=== PATIENT | male | born 1980 | race Two or more races ===

== ENCOUNTER 2017-02-25 07:19 | Observation (INO) | payer OTHER ==
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
[2017-02-25] MEDS ORDERED: morphine CARPU-JECT 4 MG/1 ML DISP.SYRIN IVPUSH ONE ×2 (08:04→10:46)
[2017-02-25] MEDS ORDERED: ONDANSETRON 4 MG/2 ML VIAL IVPUSH ONE ×2 (08:05→10:46)
[2017-02-25] MEDS ORDERED: morphine CARPU-JECT 4 MG/1 ML DISP.SYRIN ONE ×2 (08:16→10:54)
[2017-02-25] MEDS ORDERED: ONDANSETRON 4 MG/2 ML VIAL ONE ×2 (08:17→10:54)
[2017-02-25 08:39] LABS: BASOPHIL 0.4 % (0-2.0); EOSINOPHIL 2.4 % (0-4.5); MCH 30.4 pg (25.7-33.7); MCHC 33.9 g/dl (32.0-35.9); MEAN CELL VOLUME 89.9 fl (80-96); MEAN PLT VOLUME 8.7 fl (7.5-11.1); NEUTROPHILS 74.1 % (42.8-82.8); PLATELET COUNT 256 K/MM3 (134-434); RDW 13.2 % (11.9-15.9); WHITE BLOOD COUNT 9.2 K/mm3 (4.0-10.0)
[2017-02-25 11:05] LABS: ARTERIAL BLD GAS O2 SATURATION 94.6 % (90-98.9); ARTERIAL BLOOD GAS BASE EXCESS 3.9 meq/l (-2-2); ARTERIAL BLOOD GAS HCO3 28.8 meq/L (22-26); ARTERIAL BLOOD GAS pH 7.41 (7.35-7.45)
[2017-02-25 11:06] LABS: ALLENS TEST POSITIVE; ART PUNCT SITE RIGHT RADIAL; PT. ON O2? NO
[2017-02-25 11:07] LABS: ARTERIAL BLOOD GAS PO2 70.9 mmHg (80-100); LPM/O2% 21%
[2017-02-25 11:08] LABS: METHEMOGLOBIN 0.6 % (0.4-1.5)
[2017-02-25 11:51] LABS: ALBUMIN 3.5 g/dl (3.4-5.0); ALK PHOS 77 U/L (45-117); ANION GAP 7 (8-16); BILIRUBIN,TOTAL 0.7 mg/dL (0.2-1.0); CALCIUM 9.1 mg/dL (8.5-10.1); CO2 31 mmol/L (21-32); GLUCOSE,RANDOM 115 mg/dL (74-106); SGOT/AST 28 U/L (15-37); SGPT/ALT 42 U/L (12-78)
[2017-02-25 13:34] VITALS: BMI 29.2
[2017-02-25 14:03] LABS: URINE APPEARANCE CLEAR; URINE BILIRUBIN NEGATIVE (NEGATIVE); URINE BLOOD 1+ (NEGATIVE); URINE COLOR YELLOW; URINE GLUCOSE (UA) NEGATIVE (NEGATIVE); URINE KETONE NEGATIVE (NEGATIVE); URINE LEUK ESTERASE NEGATIVE (NEGATIVE); URINE NITRITE NEGATIVE (NEGATIVE); URINE PROTEIN NEGATIVE (NEGATIVE); URINE UROBILINOGEN NEGATIVE mg/dL (0.2-1.0)
[2017-02-25 14:07] LABS: URINE MUCUS RARE; URINE RBC 2 /hpf (0-3); URINE WBC 2 /hpf (3-5)
[2017-02-25] MEDS: oxyCODONE HCL 5 MG TABLET PO PRN ×2 (15:12→19:52)
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
[2017-02-26] MEDS: oxyCODONE HCL 5 MG TABLET PO PRN ×3 (06:14→14:55)
[2017-02-26] MEDS: ACETAMINOPHEN 325 MG TABLET (FP) PO PRN ×3 (06:15→14:54)
[2017-02-26 08:52] LABS: BASOPHIL 0.5 % (0-2.0); EOSINOPHIL 2.8 % (0-4.5); MCH 30.4 pg (25.7-33.7); MCHC 33.5 g/dl (32.0-35.9); MEAN CELL VOLUME 90.5 fl (80-96); MEAN PLT VOLUME 8.6 fl (7.5-11.1); NEUTROPHILS 69.9 % (42.8-82.8); PLATELET COUNT 233 K/MM3 (134-434); RDW 12.9 % (11.9-15.9); WHITE BLOOD COUNT 10.2 K/mm3 (4.0-10.0)
[2017-02-26 09:33] LABS: ANION GAP 11 (8-16); BILIRUBIN,TOTAL 0.8 mg/dL (0.2-1.0); CO2 29 mmol/L (21-32); CREATININE 0.9 mg/dL (0.7-1.3); GLUCOSE,RANDOM 88 mg/dL (74-106); SGOT/AST 20 U/L (15-37); SGPT/ALT 34 U/L (12-78); TOT PROT 6.4 g/dl (6.4-8.2)
[2017-02-26 09:36] LABS: ALK PHOS 75 U/L (45-117); CALCIUM 8.7 mg/dL (8.5-10.1)
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
[2017-02-26 14:36] VITALS: BP 134/71; PULSE 58; TEMP 97.7
== END 2017-02-26 16:04 | disposition home or self-care (01) ==
LOC: JER 07:19 → JERBED 11:18 → J6S 12:15
PROVIDERS: ADMIT Internal Medicine; ATTEND Internal Medicine
CPT/HCPCS: 36415; 36600; 70450-TC; 71010-TC; 71250-TC; 72050-TC; 80053; 81003; 81015; 82375; 82803; 83050; 85025; 86850; 86900; 86901; 94010; 99285-25; G0378